=== PATIENT | male | born 1965 | race Caucasian/White ===

== ENCOUNTER 2017-06-02 15:07 | Emergency (ER) | payer BC ==
[2017-06-02] MEDS ORDERED: NORMAL SALINE 1,000 ML IV ONE ×2 (16:08→17:41)
[2017-06-02 16:22] LABS: Hematocrit 46.6 % (42.0-52.0); Hemoglobin 16.1 gm/dL (13.5-18.0); Mean Cell Volume 95.1 fl (78-100); Mean Corpuscular Hemoglobin 32.9 pg (27-31); Mean Corpuscular Hgb Conc 34.5 g/dl (32-36); Neutrophil # 6.7 K/mm3 (1.3-6.0); Platelet Count 288 K/mm3 (150-450); Red Cell Distribution Width 12.5 % (11.5-14.0); White Blood Count 10.1 K/mm3 (4.0-10.5)
[2017-06-02 16:40] LABS: ALT 26 U/L (19-67); AST 17 U/L (0-48); Alkaline Phosphatase * 77 U/L (50-170); Anion Gap 15.7 mmol/L (6.8-13.8); BUN/Creatinine Ratio 16.7 (9.0-21.6); Bilirubin, Total 0.5 mg/dL (0.0-1.1); Blood Urea Nitrogen 11 mg/dL (6-23); CK Total * 47 U/L (0-259); Ca. Corrected For Albumin 8.7 mg/dL (8.4-10.2); Carbon Dioxide 24.4 mmol/L (24-32.6); Chloride 103 mmol/L (97-106); Glucose * 106 mg/dL (70-110); Potassium 4.1 mmol/L (3.4-4.6); Sodium 139 mmol/L (132-142); Total Protein 7.6 gm/dL (6.2-8.2); Troponin I Less than 0.017 ng/ml (0.00-0.10)
[2017-06-02 16:42] VITALS: BP 124/85
[2017-06-02 17:25] LABS: Urine Bilirubin Negative (NEGATIVE); Urine Blood Negative /ul (NEGATIVE); Urine Ketone Negative (NEGATIVE); Urine Nitrite Negative (NEGATIVE); Urine Protein Negative (NEGATIVE); Urine Specific Gravity 1.025 SP.GR. (1.005-1.030); Urine Urobilinogen Normal (NORMAL); Urine pH 5.5 pH (5.0-7.0)
[2017-06-02 17:48] LABS: Urine Appearance Clear; Urine Bacteria 1+; Urine Color Yellow; Urine Mucus Many - 3+; Urine RBC None Seen /hpf (0-5); Urine WBC 0-5 /hpf (0-5)
--- NOTE | 2017-06-02 18:54 | ERNOTE ---
Dizziness ER Record Date of Service: 06/02/17 Presenting Symptoms: weakness Time Seen by Provider: 06/02/17 15:48 Source: patient Exam Limitations: no limitations Immunizations: IMMUNIZATION HX Immunizations Up to Date Yes History of Influenza Vaccine No Allergies/Adverse Reactions: Allergies Allergy/AdvReac Type Severity Reaction Status Date / Time No Known Allergies Allergy Verified 06/05/12 15:46 Home Medications: HOME MEDICATIONS Ibuprofen [Motrin] 800 mg PO PRN PRN 12/05/12 [Last Taken 12/04/12] Tramadol HCl [Rybix Odt] 50 mg PO PRN PRN 12/05/12 [Last Taken 12/04/12] - History of Present Illness Narrative: Patient presents to the ED for generalized weakness. He relates that Tuesday he was ill with vomiting and diarrhea and feeling feverish. He has been feeling fatigued since the. Today he felt generalized weakness and lightheadedness with standing. He denies focal or unilateral weakness. He denies CP or SOB. No abdominal pain. No further vomiting or diarrhea today. No blood in stool. no WALLACE or vision changes. Nothign otherwise seems to make this better or worse. No numbness or tingling. No CO exposure. Timing and Duration: better Associated Symptoms: Absent: hearing loss, ringing/roaring in ear, nausea, vomiting, headache, numbness, sense of confusion Decreased ability to stand/walk:: Absent: off balance Modifying Factors - (Improves): Reports: nothing Modifying Factors - (Worsens): Reports: nothing Prior Treament: Denies: recently seen Review of Systems - Review of Systems Constitutional: Present: See HPI EYE: Absent: vision changes ENT: Absent: sore throat Respiratory: Absent: shortness of breath Cardiology: Absent: chest pain Gastrointestinal/Abdominal: Absent: abdominal pain Genitourinary: Absent: dysuria Skin: Absent: rash Neurological: Present: See HPI - Patient's Past Medical History Patient History - Medical: No pertinent hx Patient History - Cardiac/Respiratory: No pertinent hx Patient History - Cancer: No Hx of Cancer Patient History - Surgical Procedures: Colonoscopy, D & C Patient History - Other: None - Social History Living Situations: home Psych History: No pertinent hx Smoking Status: Current every day smoker Have you smoked in the past 12 months: Yes Alcohol Use: none Drug Use: none - Immunizations Immunizations Up to Date: Yes History of Influenza Vaccine: No Physical Exam - Physical Exam General Appearance: Present: alert, no apparent distress Head Exam: Present: normal inspection, no evidence of injury Eye Exam: Normal inspection: bilateral, PERRL: bilateral Ears, Nose, Throat: Present: normal ENT inspection Neck: Present: normal inspection, nontender Respiratory: Present: no respiratory distress, normal breath sounds, no accessory muscle use, lungs clear Cardiovascular/Chest: Present: regular rate, rhythm, normal peripheral pulses Gastrointestinal/Abdominal: Present: normal bowel sounds, nontender, nondistended, soft. 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 . Absent : facial droop, motor weakness Skin Exam: Present: normal color, warm/dry ED Progress - Results and Orders Patient's Lab Results:: I have reviewed the patient's lab results. - Vital Signs Patient's Vital Signs:: I have reviewed the patient's vital signs. Vital Signs: Vital Signs 06/02/17 06/02/17 06/02/17 15:24 15:43 15:49 Temperature 36.8 C Pulse Rate 79 79 81 Respiratory 18 Rate Blood Pressure 144/83 121/85 O2 Sat by Pulse 98 98 Oximetry 06/02/17 16:42 Temperature Pulse Rate 73 Respiratory Rate Blood Pressure 124/85 O2 Sat by Pulse 99 Oximetry - EKG EKG: NSR EKG read: Interp. by me EKG Comments: NSR rate 71. Non-specific ST/T wave changes, no STEMI. - X-Ray X-Ray #1 X-Ray: chest Interpretation: Interp. by me X-ray Comments: I reviewed official radiology report - Progress/Reassessment Chief Complaint: Dizziness Progress Note-Subjective: 06/02/17 18:53 Patient felt much improved after IV fluids. I offered him hospital observation for additional fluids and observation but he declines this. Understads risks and benefits. NIH - 0. Nothing to suggest stroke, ACS or other acute life threat. i discussed warning signs and reasons to return as well as the need for close f/u. Departure Clinical Impression: Fatigue - Departure Disposition: Home self-care Condition: Stable Additional Instructions: Rest. Fluids. Follow-up with your primary doctor Tuesday for a re-check. Return here if you change your mind about observation, develop fever, vomiting or if your condition worsens or changes in any way.
== END 2017-06-02 18:47 | disposition home or self-care (01) ==
LOC: ER 15:07
DX: R53.83 Other fatigue (principal); F17.200 Nicotine dependence, unspecified, uncomplicated